=== PATIENT | female | born 1980 | race Native Hawaiian/Other Pacific Islander ===

== ENCOUNTER → 2016-09-27 | Day surgery (SDC) | payer OTHER ==
[2016-09-27] VITALS (10 sets, daily range): BP systolic 105–123; BP diastolic 56–74; PULSE 58–81; RESP 11–18; O2SAT 99–100
[~2016-09-27] VITALS: Ht 149.9 cm; Wt 70.3 kg
[~2016-09-27] MED LIST: Dexamethasone 4 mg/mL Inj IVPUSH PRN; Dexamethasone 4 mg/mL Inj ONE; EPHEDrine Sulfate 50 mg/mL Inj IVPUSH PRN; HYDROmorphone 1 mg/mL Inj IVPUSH PRN; Lactated Ringer's 1,000 ML IV SCH; Lactated Ringer's 500 ML IV PRN; MetoCLOpramide 5 mg/mL 2 mL Inj IVPUSH PRN; MetoCLOpramide 5 mg/mL 2 mL Inj ONE; Ondansetron 2 mg/mL 2 mL Inj IVPUSH PRN; Ondansetron 2 mg/mL 2 mL Inj ONE; Phenylephrine 10,000 mCg/mL Inj IVPUSH PRN; Propofol 10,000 mCg/mL 20 mL Inj ONE; diphenhydrAMINE 25 mg Capsule PO PRN; fentaNYL-PF 50 mCg/mL 2 mL Inj IVPUSH PRN; fentaNYL-PF 50 mCg/mL 2 mL Inj ONE; oxyCODONE-Acetamin 5-325 mg Tablet PO PRN
[2016-09-27] MEDS: Lactated Ringer's 1,000 ML IV SCH ×2 (05:55→07:26)
--- NOTE | 2016-09-27 07:17 | PCM.HPANE ---
Patient Data Surgeon Admitting Provider: Attending Provider:Valentin Choudhury MD Primary Care Physician:Korina Other Provider:Lily Schumacher Anesthesia Reason for Visit Endometrial Polyp Ht/WT & BMI Height (Feet): 4 Height (Inches): 11.00 Weight (Kilograms): 70.300 Body Mass Index 31.00 Allergies Coded Allergies: No Known Allergies (Verified , 09/20/16) Past Anesthesia History Anesthesia History: Denies:: Anesthesia Reactions, Fam Anesthesia Reaction, Fam Malignant Hypertherm, Malignant Hyperthermia Diabetes History Hx Diabetes?: No MRSA MRSA: No Medications Home Meds Incl Beta Berenice: No No Active Prescriptions or Reported Meds History History of ENT Problems?: No HEENT History: Denies:: Abnormal Airway Cataracts Difficult Intubation Dysphagia Glaucoma Hearing Problem Sinus Problem TMJ Denture Type: None Teeth Condition: Within Normal Limits Hx of Heart Problems?: No Cardiovascular History: Denies:: Congestive Heart Failure Hypertension Hx of Respiratory Problem?: No Respiratory History: Denies:: Tuberculosis Use of C-PAP Machine Hx Neurologic Problems?: No Hx of GI Problems?: No Hx of Problems?: No Female Hx: Denies:: Currently Endometriosis Pelvic Inflammatory Problems with Breasts? Skin History: Denies:: History Skin Disorders? Hx Musculoskeletal Problems?: No Hx of Psycho/Social Problems?: No Hx Surgeries?: No Other History: Positive for:: Hospitalization Denies:: Cancer Endocrine Disease Thyroid Disease History Blood Transfusions: Denies:: Accept Blood Products? Blood Transfusions Hx Diabetes: No Hx Alcohol Use: NoHx Substance Use: NoHave You Smoked inLast 12 mo: No Stop/Bang Treated for Sleep Apnea?: No Do You Have a CPAP Machine?: No S-Snoring: Do You Snore Loudly: Yes T-Tired: feel tired, fatigued: No O-Obsered: Observed not breath: No P-Blood Pressure: treated: No B- Body Mass Index > 35 kg/m2: No A- Age over 50: No N- Neck Large Circumference: No G- Gender Male: No DORENE Total Score: 1 DORENE Risk Assessment: Low Risk, <3 Yes Risk Assessment Category Category 1A: Patient has history of documented sleep apnea, and HAS NOT received any narcotic, sedative or anesthesia administration during this stay. Category 1B: Patient has history of documented sleep apnea, and HAS received any narcotic , sedative or anesthesia administration during this stay Category 2: Patient has SUSPECTED Obstructive Sleep Apnea, and HAS received any narcotic , sedative or anesthesia administration during this stay. Category 3: Patient has SUSPECTED Obstructive Sleep Apnea and HAS NOT received narcotic, sedative or anesthesia administration during this stay. Category 4: Outpatient in Procedural Areas with known sleep apnea or who screen positive for High Risk via the STOP/BANG questionnaire. Exam Exam Vital Signs Vital Signs Date Time Temp Pulse Resp B/P Pulse Ox O2 Delivery O2 Flow Rate FiO2 09/27/16 06:30 36.4 58 18 112/71 99 Room Air General Appearance: Oriented X3 HEENT/AIRWAY: MP 2 Lungs: Normal Air Movement Heart: Regular Rate/Rhythm Meds/Labs/Diagnostics Admission Meds Current Medications Lactated Ringer's (Lr) 1,000 ml @ 120 mls/hr [id number] IV Last administered on t 05:55; Start 09/27/16 at 05:00; Stop 09/27/16 at 13:19 Plan Impression Patient chart reviewed, patient interviewed and anesthestic plan with risks, benefits, and alternatives discussed, and informed consent obtained. ASA Physical Status: ASA1 Normal Healthy Anesthetic Plan: GA Bene/Risks/Altern/Consents: Yes HP Complete Prior to Induction: Yes Antione Orladno MD Sep 27, 2016 07:17
--- NOTE | 2016-09-27 08:21 | PCM.DIMED ---
Discharge Instructions Date of Service Sep 27, 2016 Dates of Hospitalization Diet Discharge Diet: No restrictions Activity Discharge Activity: No restrictions Call your provider Call your provider for: Fever or Chills, Shortness of breath, Bleeding, Chest pain, Vomitting, Excessive diarrhea, Weakness (unilateral) Patient Instructions Follow-up with PCP in: 2 weeks Valentin Choudhury MD Sep 27, 2016 08:21
--- NOTE | 2016-09-27 08:57 | OP ---
[address] [address] OPERATIVE REPORT PATIENT: GALINA CARSON : 1980 MR#: [id number] ADMIT: 09/27/2016 JOB ID: [id number] DATE OF SURGERY: 09/27/2016 PROCEDURE: Operative hysteroscopy and polypectomy. PREOPERATIVE DIAGNOSIS(ES): Endometrial polyp. POSTOPERATIVE DIAGNOSIS(ES): Endometrial polyps. SURGEON: Valentin Choudhury M.D. REED MAKER: None. ANESTHESIA: General, Antione Orlando M.D. ESTIMATED BLOOD LOSS: 5 mL. ESTIMATED URINE OUTPUT: 100 mL. ESTIMATED FLUIDS: 500 mL of lactated Ringer's. ESTIMATED FLUID DEFICIT DURING HYSTEROSCOPY: 343 mL of normal saline. COMPLICATIONS: None. FINDINGS: Mildly hypertrophied endometrium. Three polyps identified, one in the mid uterine segment at 5 o'clock, two more polyps in the lower uterine segment at 10 o'clock, all of them removed during the polypectomy. PROCEDURE: The patient was taken to the operating room, where she underwent general anesthesia without difficulty. The patient was placed in a dorsal lithotomy position using Ovidio stirrups. She was prepped and draped in the usual surgical fashion. Time-out was performed verifying correct patient, correct procedure. Two Gonzalez retractors were placed into the vagina. The cervix was identified and grasped with a tenaculum. It was dilated using Hegar dilators to 8 mm. With the MyoSure hysteroscope, the cavity of the uterus was reviewed with the findings mentioned above. Using MyoSure tissue removal device, small-size, the polypectomy was performed. A series of images was obtained during the procedure. There were no complications and no bleeding. All the instruments were removed. Local oozing at the site of tenaculum placement was stopped with application of polyp forceps. The patient was repositioned back into the supine position. She tolerated the procedure well and was transferred to the recovery room in stable condition.
--- NOTE | 2016-09-27 12:51 | PCM.ANEP1 ---
Post Anesthesia PACU Phase 1 Assessment Vital Signs Vital Signs Date Time Temp Pulse Resp B/P Pulse Ox O2 Delivery O2 Flow Rate FiO2 09/27/16 09:16 70 18 105/68 100 Room Air 09/27/16 08:59 36.1 62 16 110/61 100 Room Air 09/27/16 08:45 73 14 123/70 100 Room Air 09/27/16 08:40 74 16 116/56 100 Room Air 09/27/16 08:35 80 14 112/74 100 Room Air 09/27/16 08:30 75 107/69 100 Room Air 09/27/16 08:25 69 12 117/74 100 Simple Mask 8 09/27/16 08:20 74 12 114/66 100 Simple Mask 8 09/27/16 08:15 36 81 11 114/66 100 Simple Mask 8 09/27/16 06:30 36.4 58 18 112/71 99 Room Air Anesthetic Administered: GA Level of Alertness: Awake, talking Pain: No Nausea or Vomiting: No CV Function & Hydration Stable: Yes Airway Device: Oralpharangeal Airway Lungs: Normal Air Movement PACU Phase 2 Assessment Patient Instructions Provided: N/A Antione Orlando MD Sep 27, 2016 12:51
--- NOTE | 2016-09-29 10:05 | PATH ---
SURGICAL PATHOLOGY Attending Physician:Valentin Choudhury MD CASE STATUS: Signed Out PATIENT NAME: GALINA CARSON PID: [id number] : 1980 DATE COLLECTED:09/27/2016 17:05 SPECIMEN: Endometrium, Biopsy CLINICAL HISTORY: ENDOMETRIAL POLYP 1). ENDOMETRIAL POLYP, ENDOMETRIUM FINAL DIAGNOSIS: Endometrial Polyp, Biopsy: - Fragments of weakly proliferative endometrium with features suggestive of endometrial polyp. - Negative for atypical hyperplasia and malignancy. ICD10: N84.0 GROSS DESCRIPTION: The specimen is received in one formalin filled container labeled with the patient's name, sub labeled "endometrial polyp, endometrium" and consists of multiple portions of tissue which aggregate to 3.0 x 1.5 x 0.4 CM. The specimen is filtered and entirely submitted in 2 cassettes. 09/27/2016NC ICD-9 CODES: CPT CODES: 1: 00018 Electronically Signed Out Tyshawn Bentley MD [facility] [address], [place] [address] Technical component performed at [facility], [facility] [address], [place], [address]
== END | disposition home or self-care (01) ==
LOC: SAS 05:49
PROVIDERS: ATTEND Legal Medicine
DX: N84.0 Polyp of corpus uteri (principal); N93.9 Abnormal uterine and vaginal bleeding, unspecified; N97.9 Female infertility, unspecified
CPT/HCPCS: 58558; J1100; J1885; J2405; J2765; J3010; J7120